=== PATIENT | male | born 1995 | race Caucasian/White ===

== ENCOUNTER 2017-07-24 19:19 | Emergency (ER) | payer BC ==
[~2017-07-24] VITALS: Ht 182.9 cm; Wt 67.1 kg
[~2017-07-24 19:19] MED LIST: BUPR75TA20 PO; CALC500C3 PO; IBUP-1277 PO; ONDA4TAB7 SL; SERT-234 PO
[2017-07-24 19:24] VITALS: TEMP 36.8
[2017-07-24] MEDS ORDERED: LORAZEPAM 2 MG/ML 1 ML VIAL ONE (19:25)
[2017-07-24 19:34] VITALS: O2SAT 100; Ht 182.9 cm; Wt 67.1 kg
[2017-07-24] MEDS ORDERED: DOXY100C76 PO (19:37)
[2017-07-24] MEDS ORDERED: NURSING VERBAL MED ORDER ONE (19:45)
[2017-07-24] MEDS ORDERED: LORAZEPAM 2 MG/ML 1 ML VIAL IV STA (19:49)
[2017-07-24 20:12] LABS: BASO % 0.5 %; BASO ABS # 0.05 K/uL (0-0.2); EOS % 0.8 %; EOS ABS # 0.08 K/uL (0-0.5); HEMATOCRIT 45.2 % (42-52); HEMOGLOBIN 16.4 g/dL (14.0-18.0); IG# 0.02 K/uL (0.00-0.02); LYMPH % 27.8 %; LYMPH ABS # 2.74 K/uL (1.2-3.4); MEAN CELL VOLUME 85.3 fL (80-100); MEAN CORPUSCULAR HEMOGLOBIN 30.9 pg (25-34); MEAN CORPUSCULAR HGB CONC 36.3 g/dl (32-36); MEAN PLATELET VOLUME 9.1 fL (7.4-10.4); MONO % 5.8 %; MONO ABS # 0.57 K/uL (0.11-0.59); NEUT % 64.9 %; NEUT ABS # 6.39 K/uL (1.4-6.5); PLATELET COUNT 231 K/uL (130-400); RED CELL DISTRIBUTION WIDTH CV 12.2 % (11.5-14.5); RED CELL DISTRIBUTION WIDTH SD 37.5 fL (36.4-46.3); WHITE BLOOD COUNT 9.85 K/uL (4.8-10.8)
[2017-07-24 20:37] LABS: ALBUMIN 4.5 gm/dl (3.4-5.0); CALCIUM 9.8 mg/dl (8.5-10.1); CREATININE 1.18 mg/dl (0.60-1.40); POTASSIUM 3.5 mmol/L (3.5-5.1)
[2017-07-24 20:39] LABS: TOTAL PROTEIN 8.5 gm/dl (6.4-8.2)
[2017-07-24 21:00] VITALS: BP 140/72; PULSE 92; O2SAT 95
--- NOTE | 2017-07-25 02:46 | EMERGENCY ROOM VISIT NOTE ---
History Report prepared by Jocelyn: Vladimir Cavazos Under the Supervision of: Dr. Dioni Gordon M.D. First contact with patient: 19:20 Stated Complaint: BREATHING DIFFICULTY History of Present Illness The patient is a 22 year old male who presents to the Emergency Room with complaints of constant hyperventilation that began 30 minutes ago, The patient states he was attending an EMT EKG class and was hyperventilating on purpose for the EKG. He reports since he has been constantly hyperventilating and has not been able to stop. The patient states he also began to develop muscles spasm and cramping. HE reports that his legs are currently numb and cold and his shoulders feel flexed. The patient denies any allergies and spasms in his back or neck. 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 A total of ten systems were reviewed and were otherwise negative. Past Medical & Surgical Medical Problems: (1) Acne (2) Anxiety Family History Patient reports no known family medical history. Social History Smoking Status: Never Smoker Housing Status: lives with roommate Occupation Status: [employer] student Current/Historical Medications Scheduled Doxycycline Monohydrate (Monodox), 100 MG PO BID Sertraline (Zoloft), 200 MG PO DAILY Allergies Coded Allergies: No Known Allergies (Unverified , 06/28/14) Physical Exam Vital Signs Date Time Temp Pulse Resp B/P (MAP) Pulse Ox O2 Delivery O2 Flow Rate FiO2 07/24/17 21:00 92 16 140/72 95 07/24/17 19:34 100 Room Air 07/24/17 19:28 83 07/24/17 19:28 Nasal Cannula 2.0 07/24/17 19:24 36.8 80 24 177/86 100 Nasal Cannula 2.0 Physical Exam GENERAL: Awake, alert, uncomfortable appearing, in mild distress, anxious HENT: Normocephalic, atraumatic. Oropharynx unremarkable. EYES: Normal conjunctiva. Sclera non-icteric. NECK: Supple. No nuchal rigidity. FROM. No masses. RESPIRATORY: Clear to auscultation. No wheezes. No rales. Normal respiratory effort. CARDIAC: Normal rate. Normal rhythm. No murmurs. No rubs. Extremities warm and well perfused. Pulses equal. No JVD. GI: Soft, non-distended. No tenderness to palpation. No rebound or guarding. No masses. RECTAL: Deferred. MUSCULOSKELETAL: Atraumatic. Chest examination reveals no tenderness. The back is symmetrical on inspection without obvious abnormality. There is no CVA tenderness to palpation. No joint edema. Carpal spasms. LOWER EXTREMITIES: Calves are equal size bilaterally and non-tender. No edema. No discoloration. NEURO: Normal sensorium. No sensory or motor deficits noted. SKIN: No rash or jaundice noted. Medical Decision & Procedures Laboratory Results 07/24/17 19:57 Red Blood Count 5.30, Mean Corpuscular Volume 85.3, Mean Corpuscular Hemoglobin 30.9, Mean Corpuscular Hemoglobin Concent 36.3, Mean Platelet Volume 9.1, Neutrophils (%) (Auto) 64.9, Lymphocytes (%) (Auto) 27.8, Monocytes (%) (Auto) 5.8, Eosinophils (%) (Auto) 0.8, Basophils (%) (Auto) 0.5, Neutrophils # (Auto) 6.39, Lymphocytes # (Auto) 2.74, Monocytes # (Auto) 0.57, Eosinophils # (Auto) 0.08, Basophils # (Auto) 0.05 07/24/17 19:57 Test 07/24/17 19:57 White Blood Count 9.85 K/uL (4.8-10.8) Red Blood Count 5.30 M/uL (4.7-6.1) Hemoglobin 16.4 g/dL (14.0-18.0) Hematocrit 45.2 % (42-52) Mean Corpuscular Volume 85.3 fL (80-100) Mean Corpuscular Hemoglobin 30.9 pg (25-34) Mean Corpuscular Hemoglobin Concent 36.3 g/dl (32-36) Platelet Count 231 K/uL (130-400) Mean Platelet Volume 9.1 fL (7.4-10.4) Neutrophils (%) (Auto) 64.9 % Lymphocytes (%) (Auto) 27.8 % Monocytes (%) (Auto) 5.8 % Eosinophils (%) (Auto) 0.8 % Basophils (%) (Auto) 0.5 % Neutrophils # (Auto) 6.39 K/uL (1.4-6.5) Lymphocytes # (Auto) 2.74 K/uL (1.2-3.4) Monocytes # (Auto) 0.57 K/uL (0.11-0.59) Eosinophils # (Auto) 0.08 K/uL (0-0.5) Basophils # (Auto) 0.05 K/uL (0-0.2) RDW Standard Deviation 37.5 fL (36.4-46.3) RDW Coefficient of Variation 12.2 % (11.5-14.5) Immature Granulocyte % (Auto) 0.2 % Immature Granulocyte # (Auto) 0.02 K/uL (0.00-0.02) Anion Gap 9.0 mmol/L (3-11) Est Creatinine Clear Calc Drug Dose 93.2 ml/min Estimated GFR () 100.9 Estimated GFR (Non- 87.1 BUN/Creatinine Ratio 11.9 (10-20) Calcium Level 9.8 mg/dl (8.5-10.1) Magnesium Level 2.1 mg/dl (1.8-2.4) Total Bilirubin 0.8 mg/dl (0.2-1) Direct Bilirubin 0.2 mg/dl (0-0.2) Aspartate Amino Transf (AST/SGOT) 22 U/L (15-37) Alanine Aminotransferase (ALT/SGPT) 23 U/L (12-78) Alkaline Phosphatase 90 U/L (45-117) Total Creatine Kinase 143 U/L (39-308) Total Protein 8.5 gm/dl (6.4-8.2) Albumin 4.5 gm/dl (3.4-5.0) Laboratory results reviewed by me Medications Administered Medications (Trade) Dose Ordered Sig/Aldo Route Start Time Stop Time Status Last Admin Dose Admin Lorazepam (Ativan Inj) 2 mg STK-MED ONCE .ROUTE 07/24/17 19:25 07/24/17 19:26 DC 07/24/17 19:36 1 MG Lorazepam (Ativan Inj) 1 mg NOW STAT IV 07/24/17 19:49 07/24/17 19:50 DC 07/24/17 20:02 1 MG ECG Per My Interpretation Indication: SOB/dyspnea Rate (beats per minute): 71 Rhythm: normal sinus Findings: no acute ischemic change, no ectopy, other (RSR prime pattern) ED Course 1922: The patient was evaluated in room B11B. A complete history and physical exam was performed. 1924: Ordered Ativan Injection 1 mg IV. 1940: I reevaluated the patient and he is feeling somewhat better but he is still experiencing spasms. 1948: Ordered Ativan Injection 1 mg IV. 2013: I reevaluated the patient. Discussed results and discharge instructions: He verbalized understanding and agreement. The patient is ready for discharge. Medical Decision Triage Nursing notes reviewed and agree them. The patient's history was concerning for spasms in the extremities and shortness of breath. Differential diagnosis: Etiologies such as hyperventilation, electrolyte abnormalities, pneumonia, COPD , reactive airway disease, CHF, cardiac ischemia, pulmonary embolism, pneumothorax, musculoskeletal, infections, gastrointestinal, as well as others were entertained. Physical examination: As above. The patient had carpal spasms. He was breathing somewhat fast. ER treatment provided: IV Ativan 1 mg 2 On reassessment the patient felt completely better. Resolution of all spasms. Diagnostic interpretation by me: The electrocardiogram was negative for pathologic change. The labs revealed an unremarkable CBC and chemistry panel. Imaging studies: Chest x-ray as above. I suspect the patient had some carpal spasm secondary to his hyperventilation. All symptoms resolved at this point. By the evaluation outlined above emergent etiologies such as CHF, cardiac ischemia, pulmonary embolism, reactive airway disease, pneumonia, pneumothorax, musculoskeletal, infections, as well as others were deemed relatively unlikely. The patient was informed about the findings as listed above. All questions were answered and he was pleased with the treatment. Return instructions were outlined and the patient was discharged in stable condition. Outpatient prescription management: None Referral: The patient was referred back to his primary care physician for follow-up in 2 to 3 days for a recheck of the current condition. Medication Reconcilliation Current Medication List: was personally reviewed by me Blood Pressure Screening Patient's blood pressure: Elevated blood pressure Blood pressure disposition: Referred to PCP Impression Primary Impression: carpal spasms Additional Impression: Hyperventilation Scribe Attestation The scribe's documentation has been prepared under my direction and personally reviewed by me in its entirety. I confirm that the note above accurately reflects all work, treatment, procedures, and medical decision making performed by me. Departure Information Dispostion Home / Self-Care Referrals [facility] (PCP) Forms HOME CARE DOCUMENTATION FORM, IMPORTANT VISIT INFORMATION, WORK / SCHOOL INSTRUCTIONS Additional Instructions Rest and drink plenty of fluids. Do not drive today due to medication given in the emergency department. Return to the ER for headache, chest pain, passing out, difficulty breathing, fevers, numbness, tingling, recurrent spasms, worsening of your condition, or as needed. Follow-up with your primary care physician in 2 to 3 days for a recheck of your current condition. Problem Qualifiers
== END 2017-07-24 21:05 | disposition home or self-care (01) ==
LOC: C.EDB 19:19 → EDBD 19:19 → C.EDB 21:05
DX: R25.2 Cramp and spasm (principal); R06.4 Hyperventilation; F41.9 Anxiety disorder, unspecified